=== PATIENT | male | born 1940 | race Caucasian/White ===

== ENCOUNTER 2017-11-06 13:15 | Emergency (ER) | payer OTHER, MEDICAID ==
[~2017-11-06] VITALS: Ht 172.7 cm; Wt 99.5 kg
[2017-11-06] MEDS ORDERED: WATER PILL PO (13:35)
[2017-11-06] MEDS ORDERED: FINA1 PO (13:35)
[2017-11-06] MEDS ORDERED: TERA2 PO (13:35)
[2017-11-06] MEDS ORDERED: IBUPROFEN 600 MG TABLET PO ONE (14:30)
[2017-11-06] MEDS ORDERED: LIDOCAINE HCL 1% 10 ML VIAL INJ ONE (14:30)
[2017-11-06] MEDS ORDERED: CEPHALEXIN MONOHYDRATE 500 MG CAPSULE PO ONE (14:30)
[2017-11-06] MEDS ORDERED: FINA5TAB41 PO (14:31)
[2017-11-06] MEDS ORDERED: LISI1TAB11 PO (14:31)
[2017-11-06 15:37] VITALS: BP 129/77
== END 2017-11-06 15:41 | disposition home or self-care (01) ==
LOC: EMS 13:18
DX: L03.012 Cellulitis of left finger (principal); I10 Essential (primary) hypertension
CPT/HCPCS: 10060; 99283; J3490